=== PATIENT | male | born 1950 | race African-American/Black ===

== ENCOUNTER 2016-08-22 15:13 | Emergency (ER) | payer BC ==
[~2016-08-22] VITALS: Ht 185.4 cm; Wt 108.8 kg
[~2016-08-22 15:13] MED LIST: AGMUNK PO; CMBIN INH; GFNSR600 PO
[2016-08-22 15:25] VITALS: TEMP 38.3; Ht 185.4 cm; Wt 108.8 kg
[2016-08-22] MEDS ORDERED: IBUPROFEN 600 MG TAB PO STA (15:48)
--- NOTE | 2016-08-22 16:08 | DIAGNOSTIC IMAGING REPORT ---
CHEST 2 VIEWS ROUTINE CLINICAL HISTORY: Cough. Fever. COMPARISON STUDY: Chest radiograph and chest CT October 09, 2011. FINDINGS: Lung volumes are normal. There is no pneumothorax. There are suspected trace bilateral pleural effusions. Linear bibasilar opacities favor atelectasis. Moderate cardiomegaly is unchanged. There is no evidence of pulmonary edema. IMPRESSION: 1. Trace bilateral pleural effusions and linear bibasilar opacities suggestive of atelectasis. 2. Moderate cardiomegaly without evidence of pulmonary edema. Electronically signed by: Justin Diana M.D. 08/22/2016 4:07 PM Dictated Date/Time: 08/22/2016 4:04 PM
[2016-08-22] MEDS ORDERED: ZCR40 PO (16:18)
[2016-08-22] MEDS ORDERED: ALBUTEROL HFA 8 GM INHALER INH STA (16:21)
[2016-08-22] MEDS ORDERED: AZITTAB PO (16:23)
[2016-08-22] MEDS ORDERED: BENZ1CAP90 PO (16:23)
[2016-08-22 17:15] VITALS: BP 134/80; PULSE 98; O2SAT 98
--- NOTE | 2016-08-23 00:39 | EMERGENCY ROOM VISIT NOTE ---
History First contact with patient: 15:43 Chief Complaint: RESPIRATORY PROBLEMS Stated Complaint: CHILLS,SEVERE COUGHING,I WANT TO RULE OUT PNEUMONI History of Present Illness The patient is a 65 year old male who presents to the Emergency Room with complaints of a productive cough, fevers, lethargy and poor appetite. The patient reports that he started to develop a dry cough 5 days ago. He reports the cough has not become productive of brownish colored sputum. He started to develop chills last evening, but did not check his temperature. He does report mild postnasal drip, but denies any significant sinus congestion, headache or neck pain. The patient does report a prior history of hospitalization for pneumonia in 2011. He denies any other history of asthma, COPD or other lung conditions. He last took DayQuil approximately one hour ago. He rates his overall discomfort a 3 out of 10. Review of Systems 10 system review was performed and was negative except for pertinent positives and negatives as indicated in history of present illness Past Medical/Surgical History Medical Problems: (1) Benign Prostatic Hyperplasia Without Lower Urinry Tract Symp (2) Hyperlipidemia Nec/Nos (3) Mixed Hyperlipidemia (4) Pneumonia, Organism Nos Surgical Problems: (1) No history of previous surgery Family History FH: cancer FH: hypertension Social History Smoking Status: Never Smoker Alcohol Use: occasionally Marital Status: Housing Status: lives with family Occupation Status: employed Current/Historical Medications Scheduled Azithromycin (Zithromax Z-Gee), 0 PO UD Simvastatin (Simvastatin), 40 MG PO QPM Scheduled PRN Benzonatate (Tessalon Perles), 200 MG PO TID PRN for Cough Allergies Coded Allergies: No Known Allergies (Unverified , 08/22/16) Physical Exam Vital Signs Date Time Temp Pulse Resp B/P Pulse Ox O2 Delivery O2 Flow Rate FiO2 08/22/16 17:15 98 20 134/80 98 08/22/16 15:25 38.3 112 18 121/80 95 Room Air Physical Exam CONSTITUTIONAL: Healthy and well nourished. Alert and oriented X 3 with positive affect. Patient does not appear in any acute respiratory distress. HEENT: Normocephalic, atraumatic. Pupils equal, round and reactive. Ears and nares are clear. No tenderness to palpation or percussion of the frontal or maxillary sinuses. OROPHARYNX: No postnasal drip, tonsillar hypertrophy or exudates. NECK: Full active range of motion without discomfort. LYMPHATICS: No cervical chain adenopathy noted. RESPIRATORY: Clear to auscultation bilaterally with no wheezing, crackles, rhonchi or stridor. CARDIOVASCULAR: Tachycardic with no murmurs, rubs or gallops. GASTROINTESTINAL: Bowel sounds present in all quadrants. Soft and nontender to palpation. MUSCULOSKELETAL: Full range of motion of all joints without discomfort. INTEGUMENTARY: No rash or other significant dermatologic conditions noted. HEMATOLOGIC: No ecchymosis or petechiae appreciated. NEUROLOGIC: No focal neurologic deficits noted. Medical Decision & Procedures ER Provider Diagnostic Interpretation: My interpretation of a two-view chest x-ray shows trace bilateral pleural effusions and cardiomegaly. No consolidations appreciated. Radiologist report is as follows: CHEST 2 VIEWS ROUTINE CLINICAL HISTORY: Cough. Fever. COMPARISON STUDY: Chest radiograph and chest CT October 09, 2011. FINDINGS: Lung volumes are normal. There is no pneumothorax. There are suspected trace bilateral pleural effusions. Linear bibasilar opacities favor atelectasis. Moderate cardiomegaly is unchanged. There is no evidence of pulmonary edema. IMPRESSION: 1. Trace bilateral pleural effusions and linear bibasilar opacities suggestive of atelectasis. 2. Moderate cardiomegaly without evidence of pulmonary edema. Medications Administered Medications (Trade) Dose Ordered Sig/Isaac Route Start Time Stop Time Status Last Admin Dose Admin Ibuprofen (Motrin Tab) 600 mg NOW STAT PO 08/22/16 15:48 08/22/16 15:50 DC 08/22/16 16:07 600 MG Albuterol (Ventolin Hfa Inhaler) 2 puffs ONE STAT INH 08/22/16 16:21 08/22/16 16:22 DC 08/22/16 17:14 2 PUFFS ED Course Patient history and physical exam were performed. Nurse's notes were reviewed. Vital signs were reviewed. The patient is afebrile and tachycardic. Blood pressure is normal. O2 saturation is 95% on room air. The patient was administered ibuprofen 600 mg for his fever. A two-view chest x-ray shows trace bilateral pleural effusions without consolidations. Moderate cardiomegaly is also noted. The patient will be treated with Zithromax antibiotics. He was also dispensed a Ventolin metered-dose inhaler with AeroChamber, and instructions for its use. He received a prescription for Tessalon Perles as well. He was instructed to follow-up with his PCP if symptoms are not improving in the next 3-5 days. The patient was happy with plan of care, and voiced understanding of all discharge instructions. Medical Decision Impression Primary Impression: Acute bronchitis Departure Information Prescriptions Benzonatate (Tessalon Perles) 200 Mg Cap 200 MG PO TID Y for Cough, #30 CAP Prov: John Knutson PA 08/22/16 Azithromycin (ZITHROMAX Z-GEE) 250 Mg Tab 0 PO UD, #1 PKT 2 TABS DAY 1, THEN 1 TAB DAILY FOR 4 DAYS Prov: John Knutson PA 08/22/16 Referrals Sharri Campo D.OShayla (PCP) Patient Instructions [facility] Problem Qualifiers Primary Impression: Acute bronchitis Bronchitis organism: unspecified organism Qualified Codes: J20.9 - Acute bronchitis, unspecified
== END 2016-08-22 17:16 | disposition home or self-care (01) ==
LOC: C.EDB 15:16 → C.EDC 17:16
DX: J20.9 Acute bronchitis, unspecified (principal); N40.0 Benign prostatic hyperplasia without lower urinary tract symptoms; E78.5 Hyperlipidemia, unspecified

== ENCOUNTER → 2017-07-30 | Outpatient (CLI) | payer OTHER ==
[~2017-07-30] MED LIST changes: -AGMUNK PO; -CMBIN INH; -GFNSR600 PO; +ZCR40 PO
== END | disposition home or self-care (01) ==
LOC: C.LAB 15:46
PROVIDERS: ATTEND Urology
DX: R97.20 Elevated prostate specific antigen [PSA] (principal); D49.59 Neoplasm of unspecified behavior of other genitourinary organ

== ENCOUNTER → 2017-10-28 | Outpatient (CLI) | payer OTHER | END | disposition home or self-care (01) | LOC: C.LAB 13:19 | PROVIDERS: ATTEND Urology | DX: R97.20 Elevated prostate specific antigen [PSA] (principal) ==